=== PATIENT | female | born 1975 | race Caucasian/White ===

== ENCOUNTER 2018-01-12 10:09 | Emergency (ER) | payer OTHER ==
--- NOTE | 2018-01-12 10:25 | CPEKG ---
Heart Rate: 74 RR Interval: 811 P-R Interval: 136 QRSD Interval: 90 QT Interval: 384 QTC Interval: 426 P [place]: 24 QRS [place]: 46 T Wave [place]: 19 EKG Severity - ABNORMAL ECG - EKG Impression: SINUS RHYTHM EKG Impression: VENTRICULAR PREMATURE COMPLEX EKG Impression: ABNRM R PROG, CONSIDER ASMI OR LEAD PLACEMENT Electronically Signed By: Jani Johnston 12-Jan-2018 14:16:07
--- NOTE | 2018-01-12 11:35 | EDPHY ---
H & P Time Seen by Provider: 01/12/18 11:34 HPI/ROS: Chief complaint. Nausea and vomiting, chest pain HPI. 42-year-old female presents emergency department with left anterior chest discomfort that she describes as pressure since yesterday. She also tells me she has a headache. She has pain to the upper abdomen and left mid abdomen. Symptoms began yesterday. No shortness of breath. Her symptoms seem to be worse with walking. There is no radiation of her discomfort. No illness including fever or cough. No unusual leg pain or swelling. No similar symptoms previously. Patient currently has headache. ROS Constitutional. no fever/chills, no weakness Eyes. no problems with vision ENT. no sore throat, no nasal drainage Cardiovascular. Chest pain Respiratory. no shortness of breath, no cough Abdominal. Upper abdominal pain . no problems urinating MS. no calf pain/swelling, no neck/back pain, no joint pain Skin. no rash Lymph. no swollen glands Neuro. headache, no dizziness, no difficulty walking or with speech Past Medical/Surgical History: Healthy Social History: Single, nonsmoker, no alcohol Smoking Status: Never smoked Physical Exam: General Appearance: Alert well-developed female mild distress vital signs are stable Eyes: Pupils equal and round no pallor or injection. ENT, Mouth: Mucous membranes are moist. Respiratory: There are no retractions, lungs are clear to auscultation. Cardiovascular: Regular rate and rhythm. Gastrointestinal: Abdomen is soft with tenderness in the epigastrium and some in the right upper quadrant. No masses or can't Neurological: Awake and alert, sensory and motor exams grossly normal. Skin: Warm and dry, no rashes. Musculoskeletal: Neck is supple nontender. Extremities symmetrical, full range of motion. Psychiatric: Patient is oriented X 3, there is no agitation. Constitutional: Initial Vital Signs Temperature (C) 36.8 C 01/12/18 10:15 Heart Rate 75 01/12/18 10:15 Respiratory Rate 18 01/12/18 10:15 Blood Pressure 161/99 H 01/12/18 10:15 O2 Delivery Mode Room Air Allergies/Adverse Reactions: No Known Allergies Allergy (Unverified 01/12/18 10:15) Home Medications: Medication Instructions Recorded NK [No Known Home Meds] 01/12/18 Medical Decision Making - Diagnostics EKG Interpretation: EKG interpreted by me shows normal sinus rhythm normal interval and axis. QRS is normal there is no significant ST elevation or depression. 1 PVC. Rate 74 Imaging Results: Imaging Impressions Chest X-Ray 01/12/18 11:49 Impression: Negative. Abdomen Ultrasound 01/12/18 11:50 Impression: Possible pancreatic head mass versus focal edema related to pancreatitis. Consider CT with IV contrast for further evaluation. CT abdomen pelvis with IV contrast reviewed by me and discussed with shows no evidence of pancreatic mass. Some normal intra abdominal CT. Procedures: IV normal saline. Monitor. Tylenol for headache ED Course/Re-evaluation: Serial evaluations. Re-evaluation at 2:15 p.m.. Patient and I discussed imaging and lab results. We discussed treatment plan including criteria for return importance of follow- up and further evaluation. She expresses understanding and agreement Differential Diagnosis: Patient has no risk factors for early coronary artery disease. She has a negative D-dimer and does not meet wells criteria. There was concern for gallbladder disease but she has a normal gallbladder ultrasound. There was concern for a possible pancreatic mass seen on ultrasound but on CT this is normal. I suspect that this is chest wall discomfort. Single troponin is performed as the patient has discomfort started yesterday. Her troponin is 0. I do not think that this needs to be repeated - Data Points Laboratory Results: Laboratory Results 01/12/18 10:18 01/12/18 10:18 01/12/18 01/12/18 01/12/18 13:17 12:50 10:18 WBC RBC Hgb Hct MCV MCH MCHC RDW Plt Count MPV Neut % (Auto) Lymph % (Auto) [place] % (Auto) Eos % (Auto) Baso % (Auto) Nucleat RBC Rel Count Absolute Neuts (auto) Absolute Lymphs (auto) Absolute Monos (auto) Absolute Eos (auto) Absolute Basos (auto) Absolute Nucleated RBC Immature Gran % Immature Gran # D-Dimer < 0.27 ug/mLFEU ug/mLFEU (0.00-0.50) Sodium Potassium Chloride Carbon Dioxide Anion Gap BUN Creatinine Estimated GFR Glucose Calcium Total Bilirubin Conjugated Bilirubin Unconjugated Bilirubin AST ALT Alkaline Phosphatase POC Troponin I 0.00 ng/mL ng/mL (0.00-0.08) Total Protein Albumin Lipase Beta HCG, Qual NEGATIVE 01/12/18 01/12/18 10:18 10:18 WBC 7.28 10^3/uL 10^3/uL (3.80-9.50) RBC 4.51 10^6/uL 10^6/uL (4.18-5.33) Hgb 13.9 g/dL g/dL (12.6-16.3) Hct 42.5 % % (38.0-47.0) MCV 94.2 fL fL (81.5-99.8) MCH 30.8 pg pg (27.9-34.1) MCHC 32.7 g/dL g/dL (32.4-36.7) RDW 12.1 % % (11.5-15.2) Plt Count 291 10^3/uL 10^3/uL (150-400) MPV 11.2 fL fL (8.7-11.7) Neut % (Auto) 56.8 % % (39.3-74.2) Lymph % (Auto) 33.8 % % (15.0-45.0) [place] % (Auto) 6.6 % % (4.5-13.0) Eos % (Auto) 1.9 % % (0.6-7.6) Baso % (Auto) 0.5 % % (0.3-1.7) Nucleat RBC Rel Count 0.0 % % (0.0-0.2) Absolute Neuts (auto) 4.13 10^3/uL 10^3/uL (1.70-6.50) Absolute Lymphs (auto) 2.46 10^3/uL 10^3/uL (1.00-3.00) Absolute Monos (auto) 0.48 10^3/uL 10^3/uL (0.30-0.80) Absolute Eos (auto) 0.14 10^3/uL 10^3/uL (0.03-0.40) Absolute Basos (auto) 0.04 10^3/uL 10^3/uL (0.02-0.10) Absolute Nucleated RBC 0.00 10^3/uL 10^3/uL (0-0.01) Immature Gran % 0.4 % % (0.0-1.1) Immature Gran # 0.03 10^3/uL 10^3/uL (0.00-0.10) D-Dimer Sodium 136 mEq/L mEq/L (135-145) Potassium 3.9 mEq/L mEq/L (3.3-5.0) Chloride 104 mEq/L mEq/L (97-110) Carbon Dioxide 22 mEq/l mEq/l (22-31) Anion Gap 10 mEq/L mEq/L (8-16) BUN 11 mg/dL mg/dL (7-23) Creatinine 0.6 mg/dL mg/dL (0.6-1.0) Estimated GFR > 60 Glucose 90 mg/dL mg/dL (70-100) Calcium 9.1 mg/dL mg/dL (8.5-10.4) Total Bilirubin 0.5 mg/dL mg/dL (0.1-1.4) Conjugated Bilirubin 0.1 mg/dL mg/dL (0.0-0.5) Unconjugated Bilirubin 0.4 mg/dL mg/dL (0.0-1.1) AST 22 IU/L IU/L (14-46) ALT 21 IU/L IU/L (9-52) Alkaline Phosphatase 65 IU/L IU/L (38-126) POC Troponin I Total Protein 6.9 g/dL g/dL (6.3-8.2) Albumin 4.1 g/dL g/dL (3.5-5.0) Lipase 53 IU/L IU/L (23-300) Beta HCG, Qual Medications Given: Discontinued Medications Acetaminophen (Tylenol) 1,000 mg PO EDNOW ONE Stop: 01/12/18 11:51 Last Admin: 01/12/18 12:45 Dose: 1,000 mg Sodium Chloride (Ns) 1,000 mls @ 0 mls/hr IV EDNOW ONE; Wide Open PRN Reason: Protocol Stop: 01/12/18 11:50 Last Admin: 01/12/18 11:50 Dose: 1,000 mls Point of Care Test Results: Chemistry 01/12/18 13:17 POC Troponin I 0.00 ng/mL ng/mL (0.00-0.08) Departure - Departure Disposition: Home, Routine, Self-Care Clinical Impression: Chest pain Qualifiers: Chest pain type: unspecified Qualified Code(s): R07.9 - Chest pain, unspecified Condition: Good Instructions: Chest Pain (ED) Additional Instructions: Ibuprofen 600 mg every 6 hr as needed for discomfort. Return for worsening chest discomfort or breathing. Recheck in 1 day for continuing symptoms. Referrals: NONE *PRIMARY CARE P,. [Primary Care Provider] - As per Instructions Stand Alone Forms: Work Excuse Print Language: Beninese
[2018-01-12] MEDS ORDERED: NS 1,000 ML IV ONE (11:49)
[2018-01-12] MEDS ORDERED: ACETAMINOPHEN 500 MG TAB PO ONE (11:50)
[2018-01-12 11:58] LABS: PLATELET COUNT 291 10^3/uL (150-400)
[2018-01-12] MEDS ORDERED: GASTROVIEW 30 ML UNIT PO ONE (13:16)
[2018-01-12] MEDS ORDERED: IOPAMIDOL (ISOVUE-300) 100 ML BTL ONE (13:26)
[2018-01-12 14:29] VITALS: BP 106/74
== END 2018-01-12 14:30 | disposition home or self-care (01) ==
LOC: EDSEX
DX: R07.9 Chest pain, unspecified (principal); E86.9 Volume depletion, unspecified
CPT/HCPCS: 84484-PO; Q9967